=== PATIENT | male | born 1985 | race Caucasian/White ===

== ENCOUNTER 2020-12-31 16:31 | Emergency (ER) | payer OTHER ==
[~2020-12-31] VITALS: Ht 180.3 cm; Wt 90.1 kg
--- NOTE | 2020-12-31 17:15 | EKG ---
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
--- NOTE | 2020-12-31 17:16 | RAD ---
RIGHT LEG VENOUS DOPPLER STUDY: Clinical indications: Right leg swelling and pain. Findings: Duplex sonography (including richmond scale evaluation and color flow and waveform spectral clark lysis) of the proximal aspect of the greater saphenous vein and proximal aspect of the profunda femor al vein and the entire length of the common femoral and superficial femoral and popliteal veins and t he tibioperoneal trunk and the proximal aspect of the posterior tibial and peroneal veins of the righ t leg was performed. Normal compressibility, augmentation of color Doppler flow after calf compressio n, and respiratory variation of Doppler flow is seen. Thus, there are no sonographic findings of deep venous thrombosis within these veins. Impression: There are no sonographic findings of deep venous thrombosis within the veins discussed ab ove of the right lower extremity. Electronically signed by: Carter Hartley MD (12/31/2020 5:14 PM) [id number]
[2020-12-31] MEDS ORDERED: ASPIRIN 325 MG TABLET PO ONE (17:45)
[2020-12-31] MEDS ORDERED: IV NORMAL SALINE 1,000ML 1,000 ML IV ONE (17:45)
--- NOTE | 2020-12-31 17:45 | PHYS DOC ---
Past History Past Medical History: No Pertinent History Past Surgical History: Other Additional Past Surgical Histo: Rhinoplasty Alcohol Use: None General Adult EDM: Chief Complaint: LOWER EXT PAIN HPI: HPI: Patient is a 35-year-old male who presents to the emergency department for lower right extremity pain, intermittent chest pain, intermittent shortness of breath. Patient had a rhinoplasty done 2 weeks ago and since that time he has noticed that he has increased amounts of intermittent chest pain, right lower extremity pain and right hip pain, and shortness of breath. He has never experienced this before. He has no prior history of any type of cardiac disease, stroke, pulmonary embolism, pneumonia or pneumothorax. Patient states that the pain is not associated with any type of movement comes and goes randomly and is not positional. Patient states that he was not very worried about it and his forced him to come in today to make sure that he did not have a blood clot. Patient has no other associated symptoms. Patient has not noticed any increased swelling in the right lower extremity either. The pain is not relieved by anything or aggravated by nothing and just comes and goes intermittently. The chest pain does not radiate. He says the pain is not severe enough to cause him discomfort and enough to come to the ER today. Review of Systems: Review of Systems: Constitutional: Denies fever or chills Eyes: Denies redness or eye pain HENT: Denies nasal congestion or sore throat Respiratory: Denies cough, reports shortness of breath Cardiovascular: Denies chest pain or palpitations GI: Denies abdominal pain, nausea, or vomiting : Denies dysuria or hematuria Musculoskeletal: Denies back pain or joint pain, reports right hip pain and lower right leg pain Integument: Denies rash or skin lesions Neurologic: Denies headache, focal weakness or sensory changes Complete systems were reviewed and found to be within normal limits, except as documented in this note. Physical Exam: PE: Constitutional: Well developed, well nourished, no acute distress, non-toxic appearance HENT: Normocephalic, atraumatic Eyes: PERRL, EOMI, conjunctiva normal, no discharge Neck: Normal range of motion, no tenderness, supple Lungs & Thorax: No respiratory distress, equal chest rise and fall Abdomen: Soft, no tenderness Skin: Warm, dry, no erythema, no rash Back: No tenderness, no CVA tenderness Extremities: No tenderness, ROM intact, no edema Neurologic: Alert and oriented X 3, normal motor function, normal sensory function, no focal deficits noted Psychologic: Affect normal, judgment normal Lungs: CTAB, good aeration throughout Current Patient Data: Vital Signs: Vital Signs Date Time Temp Pulse Resp B/P (MAP) Pulse Ox O2 Delivery O2 Flow Rate FiO2 12/31/20 16:31 98.3 81 16 127/99 (108) 97 Room Air EKG: EKG: @1645 NSR at 82bpm, NO ST elevation, QRS 86ms, QT/QTc 348/409ms Radiology/Procedures: Radiology/Procedures: PROCEDURE: VENOUS LOWER EXTREMITY RIGHT RIGHT LEG VENOUS DOPPLER STUDY: Clinical indications: Right leg swelling and pain. Findings: Duplex sonography (including richmond scale evaluation and color flow and waveform spectral analysis) of the proximal aspect of the greater saphenous vein and proximal aspect of the profunda femoral vein and the entire length of the common femoral and superficial femoral and popliteal veins and the tibioperoneal trunk and the proximal aspect of the posterior tibial and peroneal veins of the right leg was performed. Normal compressibility, augmentation of color Doppler flow after calf compression, and respiratory variation of Doppler flow is seen. Thus, there are no sonographic findings of deep venous thrombosis within these veins. Impression: There are no sonographic findings of deep venous thrombosis within the veins discussed above of the right lower extremity. Electronically signed by: Carter Hartley MD (12/31/2020 5:14 PM) [id number] PROCEDURE: CT ANGIOGRAPHY CHEST Examination: CT angiography chest with IV contrast HISTORY: History of elevated d-dimer, chest pain COMPARISON: None available TECHNIQUE: Axial CT angiographic images of chest were performed with IV contrast. Coronal and sagittal 3-D MIP reformats are performed Exposure: One or more of the following individualized dose reduction techniques were utilized for this examination: 1. Automated exposure control 2. Adjustment of the mA and/or kV according to patient size 3. Use of iterative reconstruction technique FINDINGS: The central airways are patent. The heart size grossly appears unremarkable. The caliber of the aorta grossly appears unremarkable. No evidence of filling defect identified in pulmonary arterial trunk and right and left main pulmonary arteries and the visualized lobar, segmental branch of the pulmonary arteries. Faint groundglass airspace opacities bibasilar lungs. The liver, spleen, adrenals grossly appears unremarkable No evidence of lytic bony destructive lesion. IMPRESSION: 1. No evidence of pulmonary embolism. 2. Faint groundglass airspace opacities identified in the bibasilar lungs likely atelectasis or infiltrates. Electronically signed by: Clive Santana MD (12/31/2020 8:38 PM) [id number] Heart Score: C/O Chest Pain: Yes HEART Score for Chest Pain: HEART Score for Chest Pain Response (Comments) Value History Slighlty/Non-Suspicious 0 ECG Normal 0 Age < 45 0 Risk Factors 1 or 2 Risk Factors 1 Total 1 Risk Factors: Risk Factors: DM, Current or recent (<one month) smoker, HTN, HLP, family his tory of CAD, obesity. Risk Scores: Score 0 - 3: 2.5% MACE over next 6 weeks - Discharge Home Score 4 - 6: 20.3% MACE over next 6 weeks - Admit for Clinical Observation Score 7 - 10: 72.7% MACE over next 6 weeks - Early Invasive Strategies Course & Med Decision Making: Course & Med Decision Making Pertinent Labs and Imaging studies reviewed. (See chart for details) 35-year-old male presents to emergency department for chest pain right lower extremity pain and shortness of breath. The patient has been having symptoms for around 3 days they wax and wane. He came to the emergency department today because the symptoms were not improving by themselves and he wanted to make sure he was not having a pulmonary embolism. He says that he has taken some medication for the pain that he has experienced, but he has not taken any nitro before coming here. He did have a recent surgery a couple weeks ago for a rhinoplasty where there were no complications. Patient states that the chest pain and shortness of breath is not associated with any movements or any activity and thus it is not relieved by any activity or any position. Because of his pain in his right lower extremity we did obtain a Doppler of his right lo wer extremity which came back negative. He said the pain is moderate when it is worse. Because of his recent surgery we cannot use the PERC rule to rule out a pulmonary embolism, so we obtained a D-dimer to screen him. The D-dimer came back mildly elevated so we performed a CT angiography of his chest which came back negative. As result of this imaging, as well as the clinical presentation of the patient, we discharged the patient home with follow-up with his primary care doctor within 2 weeks. He also advised the patient that if he begins to worsen any of his symptoms in the next 5 days a return emergency room or to his primary care provider. Patient stable for discharge with outpatient follow-up with PCP. Discussed findings and plan with patient, who acknowledges understanding and agreement. Tommie Disclaimer: Tommie Disclaimer: This electronic medical record was generated, in whole or in part, using a voice recognition dictation system. Departure Departure: Impression: Primary Impression: Atypical chest pain Additional Impression: Right leg pain Disposition: HOME / SELF CARE / HOMELESS Condition: STABLE Referrals: NON,STAFF (PCP) Patient Instructions: Chest Pain (Nonspecific), [id number], Leg Cramps Scripts Famotidine (PEPCID) 20 Mg Tablet 1 TAB PO BID for Gastritis, #30 TAB Prov: MAYRA TOM DO 12/31/20 Orphenadrine Citrate (ORPHENADRINE CITRATE) 100 Mg Tablet.er 1 TAB PO BID PRN for MUSCLE PAIN, #14 TAB 0 Refills Prov: MAYRA TOM DO 12/31/20 MAYRA TOM DO Dec 31, 2020 17:45
[2020-12-31 18:30] VITALS: BP 141/94
[2020-12-31 18:59] LABS: CALCIUM 9.5 mg/dL (8.5-10.1); GFR 86.1; POTASSIUM 4.2 mmol/L (3.5-5.1)
[2020-12-31 19:01] LABS: BASO % 1 % (0-3); EOS # 0.3 x10^3/uL (0.0-0.7); EOS % 3 % (0-3); HEMATOCRIT 47.9 % (39.0-53.0); HEMOGLOBIN 16.1 g/dL (13.0-17.5); LYMPH % 25 % (24-48); MEAN CORPUSCULAR HEMOGLOBIN 29 pg (25-35); MEAN CORPUSCULAR HGB CONC 34 g/dL (31-37); MEAN CORPUSCULAR VOLUME 87 fL (79-100); MONO # 0.5 x10^3/uL (0.0-1.1); MONO % 6 % (0-9); NEUT # 5.4 x10^3uL (1.8-7.7); NEUT % 65 % (31-73); PLATELET COUNT 291 x10^3/uL (140-400); RED BLOOD COUNT 5.51 x10^6/uL (4.30-5.70); WHITE BLOOD COUNT 8.3 x10^3/uL (4.0-11.0)
[2020-12-31 19:11] LABS: ALBUMIN 4.4 g/dL (3.4-5.0); ALBUMIN/GLOBULIN RATIO 1.3 (1.0-1.7); TOTAL BILIRUBIN 0.2 mg/dL (0.2-1.0); TOTAL PROTEIN 7.9 g/dL (6.4-8.2)
[2020-12-31] MEDS ORDERED: IOHEXOL 350 MG/ML 100 ML VIAL. IV ONE (19:45)
--- NOTE | 2020-12-31 20:40 | RAD ---
Examination: CT angiography chest with IV contrast HISTORY: History of elevated d-dimer, chest pain COMPARISON: None available TECHNIQUE: Axial CT angiographic images of chest were performed with IV contrast. Coronal and sagitta l 3-D MIP reformats are performed Exposure: One or more of the following individualized dose reduction techniques were utilized for thi s examination: 1. Automated exposure control 2. Adjustment of the mA and/or kV according to patient size 3. Use of iterative reconstruction technique FINDINGS: The central airways are patent. The heart size grossly appears unremarkable. The caliber of the aort a grossly appears unremarkable. No evidence of filling defect identified in pulmonary arterial trunk and right and left main pulmonary arteries and the visualized lobar, segmental branch of the pulmonar y arteries. Faint groundglass airspace opacities bibasilar lungs. The liver, spleen, adrenals grossly appears unr emarkable No evidence of lytic bony destructive lesion. IMPRESSION: 1. No evidence of pulmonary embolism. 2. Faint groundglass airspace opacities identified in the bibasilar lungs likely atelectasis or infi ltrates. Electronically signed by: Clive Santana MD (12/31/2020 8:38 PM) [id number]
[2020-12-31] MEDS ORDERED: FAMO-63 PO (21:07)
[2020-12-31] MEDS ORDERED: ORPH-16 PO (21:07)
[2020-12-31] MEDS ORDERED: ORPHENADRINE CITRATE 60 MG/2 ML VIAL. IV ONE (21:15)
[2020-12-31] MEDS ORDERED: FAMOTIDINE 20 MG/2 ML VIAL IVP ONE (21:15)
== END 2020-12-31 21:28 | disposition home or self-care (01) ==
LOC: ER 16:31
DX: M79.604 Pain in right leg (principal); R07.89 Other chest pain; R06.02 Shortness of breath; M25.551 Pain in right hip
CPT/HCPCS: 36415; 71275; 80053; 83690; 83735; 83880; 84484; 85025; 85379; 93005; 93971; 96361; 96374; 96375; 99285; J2360; J3490; J7030